=== PATIENT | female | born 1975 | race Two or more races ===

== ENCOUNTER 2018-05-01 11:39 | Emergency (ER) | payer MEDICAID ==
[~2018-05-01] VITALS: Ht 154.9 cm; Wt 92.9 kg
[2018-05-01 12:27] LABS: BASOPHILS # (AUTO) 0.04 x10^3/uL (0-0.1); BASOPHILS % (AUTO) 0 % (0-1); EOSINOPHILS # (AUTO) 0.15 x10^3/uL (0-0.4); EOSINOPHILS % (AUTO) 2 % (1-7); LYMPHOCYTES # (AUTO) 2.33 x10^3/uL (1-3.4); LYMPHOCYTES % (AUTO) 24 % (22-44); MD NO; MEAN CORPUSCULAR HEMOGLOBIN 27.6 pg (27.0-34.8); MEAN CORPUSCULAR HGB CONC 33.3 g/dL (32.4-35.8); MEAN CORPUSCULAR VOLUME 82.7 fL (80-100); MEAN PLATELET VOLUME 8.4 fL (7.4-10.4); MONOCYTES # (AUTO) 0.52 x10^3/uL (0.2-0.8); MONOCYTES % (AUTO) 5 % (2-9); NEUTROPHILS # (AUTO) 6.59 x10^3/uL (1.8-6.8); NEUTROPHILS % (AUTO) 68 % (42-75); PLATELET COUNT 266 x10^3/uL (130-400); RED BLOOD COUNT 4.65 x10^6/uL (3.82-5.3); RED CELL DISTRIBUTION WIDTH 14.2 % (9.6-15.2)
[2018-05-01 12:39] LABS: ALBUMIN 3.5 g/dL (3.4-5.0); ANION GAP 8 mmol/L (5-15); CALCIUM 8.4 mg/dL (8.5-10.1); CHLORIDE 108 mmol/L (98-107)
[2018-05-01 12:43] LABS: ALANINE AMINOTRANSFERASE 26 U/L (12-78); ALKALINE PHOSPHATASE 109 U/L (45-117); BILIRUBIN,TOTAL 0.4 mg/dL (0.2-1.0); CREATININE 0.61 mg/dL (0.55-1.02); TOTAL PROTEIN 7.6 g/dL (6.4-8.2)
[2018-05-01] MEDS ORDERED: KETOROLAC 30 MG/1 ML IM ONE (13:00)
[2018-05-01 13:01] LABS: CULTURE INDICATED? YES; MICROSCOPIC INDICATED
[2018-05-01 13:02] LABS: HCG UR SG 1.015 (1.003-1.030)
[2018-05-01] MEDS ORDERED: KETOROLAC 30 MG/1 ML ONE (13:05)
[2018-05-01 14:08] VITALS: BP 142/88
== END 2018-05-01 14:11 | disposition home or self-care (01) ==
LOC: ED 14:05
DX: R10.12 Left upper quadrant pain (principal); R10.32 Left lower quadrant pain; E11.9 Type 2 diabetes mellitus without complications
CPT/HCPCS: 36415; 74176; 80053; 81001; 81025; 83690; 85025; 87086; 96372; 99285; J1885

== ENCOUNTER 2018-11-08 15:21 | Emergency (ER) | payer MEDICAID ==
[~2018-11-08] VITALS: Ht 152.4 cm; Wt 93.2 kg
[2018-11-08 15:44] LABS: BASOPHILS # (AUTO) 0.06 x10^3/uL (0-0.1); BASOPHILS % (AUTO) 1 % (0-1); EOSINOPHILS # (AUTO) 0.21 x10^3/uL (0-0.4); EOSINOPHILS % (AUTO) 2 % (1-7); LYMPHOCYTES # (AUTO) 3.46 x10^3/uL (1-3.4); LYMPHOCYTES % (AUTO) 25 % (22-44); MD NO; MEAN CORPUSCULAR HEMOGLOBIN 25.9 pg (27.0-34.8); MEAN CORPUSCULAR HGB CONC 32.2 g/dL (32.4-35.8); MEAN CORPUSCULAR VOLUME 80.4 fL (80-100); MEAN PLATELET VOLUME 8.4 fL (7.4-10.4); MONOCYTES # (AUTO) 0.74 x10^3/uL (0.2-0.8); MONOCYTES % (AUTO) 5 % (2-9); NEUTROPHILS # (AUTO) 9.16 x10^3/uL (1.8-6.8); NEUTROPHILS % (AUTO) 67 % (42-75); PLATELET COUNT 308 x10^3/uL (130-400); RED CELL DISTRIBUTION WIDTH 14.9 % (9.6-15.2)
[2018-11-08 15:56] LABS: ALANINE AMINOTRANSFERASE 30 U/L (12-78); ALBUMIN 3.8 g/dL (3.4-5.0); ANION GAP 7 mmol/L (5-15); CALCIUM 8.7 mg/dL (8.5-10.1); CHLORIDE 105 mmol/L (98-107); CREATININE 0.74 mg/dL (0.55-1.02)
[2018-11-08 16:01] LABS: ALKALINE PHOSPHATASE 141 U/L (45-117); BILIRUBIN,TOTAL 0.4 mg/dL (0.2-1.0); TOTAL PROTEIN 8.1 g/dL (6.4-8.2)
[2018-11-08 16:20] LABS: CULTURE INDICATED? YES; MICROSCOPIC INDICATED
--- NOTE | 2018-11-08 17:36 | NUR ---
PATIENT IN ROOM. ALL PIT ORDERS COMPLETE. AWAITING MD REASSESSMENT
--- NOTE | 2018-11-08 19:07 | NUR ---
MD aware of pts request for pain meds, pt to ct, will reasses pain after ct
[2018-11-08] MEDS ORDERED: OMNIPAQUE 350 MG/ML, 100ML BOTTLE ONE (19:24)
--- NOTE | 2018-11-08 19:28 | NUR ---
Back from ct
[2018-11-08] MEDS ORDERED: CEFTRIAXONE PMX 1GM/50ML 50 ML IVPB ONE (20:00)
[2018-11-08] MEDS ORDERED: LIDOCAINE-MPF 1%, 2ML ONE (20:25)
[2018-11-08] MEDS ORDERED: CEFTRIAXONE 1,000 MG ONE (20:25)
[2018-11-08 20:39] VITALS: BP 110/69
[2018-11-08] MEDS ORDERED: CEFTRIAXONE 1,000 MG IM ONE (21:00)
== END 2018-11-08 20:41 | disposition home or self-care (01) ==
LOC: ED 20:35
DX: N30.00 Acute cystitis without hematuria (principal); R11.2 Nausea with vomiting, unspecified; R19.7 Diarrhea, unspecified; E11.9 Type 2 diabetes mellitus without complications
CPT/HCPCS: 36415; 74177; 80053; 81001; 83690; 84703; 85025; 87086; 96372; 99284; J0696; Q9967

== ENCOUNTER 2019-06-21 03:48 | Emergency (ER) | payer MEDICAID ==
[~2019-06-21] VITALS: Ht 157.5 cm; Wt 91.0 kg
[~2019-06-21 03:48] MED LIST: ACET325T14 PO; METF500T17 PO
--- NOTE | 2019-06-21 04:09 | NUR ---
ambulatory back from restroom
[2019-06-21] MEDS ORDERED: KETOROLAC 30 MG/1 ML ONE (04:23)
[2019-06-21] MEDS ORDERED: PHENAZOPYRIDINE 200 MG TABLET ONE (04:23)
[2019-06-21] MEDS ORDERED: PHENAZOPYRIDINE 200 MG TABLET PO ONE (04:30)
[2019-06-21] MEDS ORDERED: KETOROLAC 30 MG/1 ML IM ONE (04:30)
--- NOTE | 2019-06-21 04:33 | NUR ---
URINE WALKED TO LAB D/T SMALL QUANITY. MEDS PER SEP. WILL CTM.
[2019-06-21 04:37] LABS: HCG UR SG 1.022 (1.003-1.030)
[2019-06-21 04:40] LABS: CULTURE INDICATED? YES; MICROSCOPIC INDICATED
[2019-06-21 04:45] LABS: BASOPHILS # (AUTO) 0.04 x10^3/uL (0-0.1); BASOPHILS % (AUTO) 0 % (0-1); EOSINOPHILS # (AUTO) 0.19 x10^3/uL (0-0.4); EOSINOPHILS % (AUTO) 2 % (1-7); LYMPHOCYTES # (AUTO) 2.07 x10^3/uL (1-3.4); LYMPHOCYTES % (AUTO) 18 % (22-44); MD NO; MEAN CORPUSCULAR HEMOGLOBIN 26.8 pg (27.0-34.8); MEAN CORPUSCULAR HGB CONC 32.5 g/dL (32.4-35.8); MEAN CORPUSCULAR VOLUME 82.4 fL (80-100); MEAN PLATELET VOLUME 8.5 fL (7.4-10.4); MONOCYTES # (AUTO) 0.44 x10^3/uL (0.2-0.8); MONOCYTES % (AUTO) 4 % (2-9); NEUTROPHILS # (AUTO) 8.87 x10^3/uL (1.8-6.8); NEUTROPHILS % (AUTO) 76 % (42-75); PLATELET COUNT 271 x10^3/uL (130-400); RED BLOOD COUNT 4.73 x10^6/uL (3.82-5.3); RED CELL DISTRIBUTION WIDTH 15.5 % (9.6-15.2)
[2019-06-21 04:54] LABS: ALANINE AMINOTRANSFERASE 28 U/L (12-78); ALBUMIN 3.7 g/dL (3.4-5.0); ANION GAP 9 mmol/L (5-15); CALCIUM 8.5 mg/dL (8.5-10.1); CHLORIDE 104 mmol/L (98-107)
[2019-06-21 04:56] LABS: ALKALINE PHOSPHATASE 119 U/L (45-117); BILIRUBIN,TOTAL 0.4 mg/dL (0.2-1.0)
--- NOTE | 2019-06-21 05:05 | NUR ---
PT ASLEEP ON CART. RR EVEN NON LABORED. WAITING ON CT.
--- NOTE | 2019-06-21 05:08 | NUR ---
PT TO CT VIA CART
[2019-06-21 05:37] VITALS: BP 110/65
--- NOTE | 2019-06-21 05:37 | NUR ---
PT SLEEPING. RR EVEN NON LABORED. VSS. STATES FEELING MUCH BETTER. AWARE OF PENDING CT RESULTS. DENIES ANY NEEDS,
--- NOTE | 2019-06-21 07:03 | NUR ---
REPORT RECEIVED FROM KARLOS SEAY.
--- NOTE | 2019-06-21 07:12 | NUR ---
Patient given discharge instructions and they have confirmed that they understand the instructions. Patient ambulatory with steady gait.
== END 2019-06-21 07:13 ==
LOC: ED 04:55
DX: N21.1 Calculus in urethra (principal); R30.0 Dysuria; R10.9 Unspecified abdominal pain; N13.30 Unspecified hydronephrosis
CPT/HCPCS: 36415; 74176; 80053; 81001; 81025; 85025; 87086; 96372; 99284; J1885

== ENCOUNTER 2019-08-15 16:03 | Emergency (ER) | payer MEDICAID ==
[~2019-08-15] VITALS: Ht 154.9 cm; Wt 89.8 kg
[2019-08-15] MEDS ORDERED: MORPHINE SULFATE 4 MG/ML, 1ML IVPush PRN (17:00)
[2019-08-15] MEDS ORDERED: SODIUM CHLORIDE FLUSH 10ML SYR IVF ONE (17:00)
--- NOTE | 2019-08-15 17:00 | NUR ---
AMBULATED TO BATHROOM WITH ASSISTANCE OF AND OBTAINED URINE SAMPLE.
[2019-08-15] MEDS ORDERED: MORPHINE SULFATE 4 MG/ML, 1ML ONE (17:16)
[2019-08-15 17:26] LABS: BASOPHILS # (AUTO) 0.04 x10^3/uL (0-0.1); BASOPHILS % (AUTO) 0 % (0-1); EOSINOPHILS # (AUTO) 0.25 x10^3/uL (0-0.4); EOSINOPHILS % (AUTO) 2 % (1-7); LYMPHOCYTES # (AUTO) 3.14 x10^3/uL (1-3.4); LYMPHOCYTES % (AUTO) 28 % (22-44); MD NO; MEAN CORPUSCULAR HEMOGLOBIN 24.3 pg (27.0-34.8); MEAN PLATELET VOLUME 8.1 fL (7.4-10.4); MONOCYTES # (AUTO) 0.59 x10^3/uL (0.2-0.8); MONOCYTES % (AUTO) 5 % (2-9); NEUTROPHILS # (AUTO) 7.05 x10^3/uL (1.8-6.8); NEUTROPHILS % (AUTO) 64 % (42-75); PLATELET COUNT 388 x10^3/uL (130-400); RED BLOOD COUNT 4.23 x10^6/uL (3.82-5.3)
[2019-08-15 17:34] LABS: ALBUMIN 3.8 g/dL (3.4-5.0); ANION GAP 7 mmol/L (5-15); CALCIUM 8.9 mg/dL (8.5-10.1); CHLORIDE 107 mmol/L (98-107); CREATININE 0.61 mg/dL (0.55-1.02)
--- NOTE | 2019-08-15 17:55 | NUR ---
PT SLEEPING AFTER RECEIVING PAIN MEDICATION
--- NOTE | 2019-08-15 18:10 | NUR ---
OFF FLOOR TO CT
[2019-08-15] MEDS ORDERED: OMNIPAQUE 350 MG/ML, 100ML BOTTLE ONE (18:33)
[2019-08-15 18:34] LABS: MICROSCOPIC INDICATED
--- NOTE | 2019-08-15 18:47 | NUR ---
TO BATHROOM WITH ASSISTANCE OF FAMILY
[2019-08-15 18:55] LABS: CULTURE INDICATED? NO
--- NOTE | 2019-08-15 18:59 | NUR ---
dr amor spoke with dr buitrago
--- NOTE | 2019-08-15 19:01 | NUR ---
REPORT TO MICHAEL SEAY
--- NOTE | 2019-08-15 19:02 | NUR ---
Assumed care of pt. Pt laying on left side, sleeping. Family at bedside.
[2019-08-15 19:23] VITALS: BP 109/58
--- NOTE | 2019-08-15 19:23 | NUR ---
Wound dressed. DC vitals taken.
--- NOTE | 2019-08-15 19:30 | NUR ---
Pt dc'd to self care. Pt alert, ambulatory and in NAD. Pt education given including medications, follow-up, home care, and S/Sx to return. Pt and family VU. Pt ambulated out of ER.
== END 2019-08-15 19:32 | disposition home or self-care (01) ==
LOC: ED 19:05
DX: M54.5 Low back pain (principal); R50.9 Fever, unspecified; E11.9 Type 2 diabetes mellitus without complications; Z98.890 Other specified postprocedural states
CPT/HCPCS: 36415; 72132; 80048; 81001; 82040; 84703; 85025; 96374; 99284; J2270; Q9967

== ENCOUNTER 2020-06-28 14:56 | Emergency (ER) | payer MEDICAID ==
[~2020-06-28] VITALS: Ht 152.4 cm; Wt 88.6 kg
--- NOTE | 2020-06-28 16:08 | NUR ---
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
[2020-06-28] MEDS ORDERED: DEXAMETHASONE 4 MG TABLET PO ONE (16:30)
[2020-06-28] MEDS ORDERED: DEXAMETHASONE 4 MG TABLET ONE (16:50)
--- NOTE | 2020-06-28 17:14 | NUR ---
PT REFUSE IV AT THIS TIME
--- NOTE | 2020-06-28 17:17 | NUR ---
YESI MCLEOD UPDATED ON [facility] [phone].
[2020-06-28 17:51] VITALS: BP 124/81
--- NOTE | 2020-06-28 18:36 | NUR ---
PT PLACED FOR RECHECK
--- NOTE | 2020-06-28 19:24 | NUR ---
report from olga monteiro
--- NOTE | 2020-06-28 19:59 | NUR ---
pt 96% on room air. pt given discharge instructions and walked to exit.
== END 2020-06-28 20:00 | disposition home or self-care (01) ==
LOC: ED 17:30
DX: U07.1 COVID-19 (principal); J12.9 Viral pneumonia, unspecified; E11.9 Type 2 diabetes mellitus without complications; R50.9 Fever, unspecified; R00.0 Tachycardia, unspecified
CPT/HCPCS: 71045; 87635; 93005; 99285